=== PATIENT | female | born 1940 | race Caucasian/White ===

== ENCOUNTER → 2023-06-11 15:07 | Outpatient (REF) | payer MEDICARE, OTHER, SELFPAY | LOC: HWRAD 15:07 | PROVIDERS: ATTENDING PHYSICIAN Internal Medicine; FAMILY PHYSICIAN Family Medicine | DX: M81.0 Age-related osteoporosis without current pathological fracture (principal) | CPT/HCPCS: 77080 ==

== ENCOUNTER → 2023-06-23 09:56 | Outpatient (REF) | payer MEDICARE, OTHER, SELFPAY ==
[2023-06-23 12:44] LABS: ALT (SGPT) 22 U/L (0-35); AST (SGOT) 28 U/L (14-36); Albumin 4.4 g/dl (3.5-5.0); Alkaline Phosphatase 49 U/L (38-126); Blood Urea Nitrogen 23 mg/dl (7-17); Calcium 9.6 mg/dl (8.4-10.2); Carbon Dioxide 30 mmol/L (22-30); Chloride 100 mmol/L (98-107); Glucose 105 mg/dl (70-99); Potassium 4.5 mmol/L (3.5-5.1); Sodium 137 mmol/L (135-145); Total Bilirubin 0.8 mg/dl (0.2-1.3); Total Protein 6.7 g/dl (6.3-8.2); eGFR 50.17
[2023-06-23 12:52] LABS: Vitamin D, 25-OH*** 51.4 ng/mL (30-80)
== END ==
LOC: HWLAB 09:56
PROVIDERS: ATTENDING PHYSICIAN Internal Medicine; FAMILY PHYSICIAN Family Medicine
DX: M81.0 Age-related osteoporosis without current pathological fracture (principal); Z51.81 Encounter for therapeutic drug level monitoring
CPT/HCPCS: 36415; 80053; 82306

== ENCOUNTER → 2023-08-08 11:10 | Outpatient (REF) | payer MEDICARE, OTHER, SELFPAY | LOC: DHCBC/DCA 11:10 | PROVIDERS: ATTENDING PHYSICIAN Internal Medicine Cardiovascular Disease; FAMILY PHYSICIAN Family Medicine | DX: I47.29 Other ventricular tachycardia (principal); I44.0 Atrioventricular block, first degree; Z95.0 Presence of cardiac pacemaker; R94.31 Abnormal electrocardiogram [ECG] [EKG] | CPT/HCPCS: 78452; 93017; A9500; J2785 ==

== ENCOUNTER → 2023-08-14 10:36 | Outpatient (REF) | payer MEDICARE, OTHER, SELFPAY ==
[2023-08-14 12:52] LABS: Blood Urea Nitrogen 25 mg/dl (7-17); Calcium 9.2 mg/dl (8.4-10.2); Carbon Dioxide 30 mmol/L (22-30); Chloride 102 mmol/L (98-107); Glucose 103 mg/dl (70-99); Potassium 4.7 mmol/L (3.5-5.1); Sodium 138 mmol/L (135-145); eGFR 45.19
== END ==
LOC: HWLAB 10:36
PROVIDERS: ATTENDING PHYSICIAN Family Medicine
DX: E03.9 Hypothyroidism, unspecified (principal); N18.31 Chronic kidney disease, stage 3a; R73.01 Impaired fasting glucose
CPT/HCPCS: 36415; 80048; 83036; 84443

== ENCOUNTER → 2023-10-16 13:18 | Outpatient (REF) | payer MEDICARE, OTHER, SELFPAY | LOC: HWWDC 13:18 | PROVIDERS: ATTENDING PHYSICIAN Family Medicine | DX: Z12.31 Encounter for screening mammogram for malignant neoplasm of breast (principal) | CPT/HCPCS: 77063; 77067 ==

== ENCOUNTER 2024-01-16 11:14 | Emergency (ER) | payer MEDICARE, OTHER, SELFPAY ==
[2024-01-16 11:50] VITALS: BP 166/72
--- NOTE | 2024-01-16 14:40 | ED.GENMED ---
History of Present Illness
General
Chief Complaint: Fall
Source: patient
Exam Limitations: none
Time Seen by Provider: 01/16/24 13:11
Nursing documentation reviewed up to this point in time: agreed with
History of Present Illness
History of Present Illness:
83-year-old female presenting to the emergency department today after trip and fall 5 days ago ongoing pain to the right hip. Also bruising. Able to walk denies numbness weakness any head trauma or neck pain.
Past History
Past History
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
ED Past Surgical History: Appendectomy, Orthopedic (wrist surgery, finger surgery as a child, Laser surgery on both eyes for glaucoma) and Tonsilectomy
Social History
Tobacco: Non-smoker
Personal:
Living: with family
Employment: Retired
Review of Systems
Review of Systems
Allergies reviewed?: Yes
All Other Systems: ROS reviewed and negative except as documented in HPI and ROS
Phy Exam
Physical Exam
Physical Exam:
GENERAL: Alert , in no apparent distress
EYE: pupils equal and reactive
NECK: Supple, no significant adenopathy.
ENT: o/p clr, mmm.
CARDIAC: Regular rate and rhythm .
LUNGS: Clear breath sounds bilaterally, no acute respiratory distress, no wheezes/rales/rhonchi
ABDOMEN: Soft, without focal tenderness, no r/g, no cvat
NEUROLOGICAL: Alert and oriented, no focal neuro deficits
SKIN: Warm and dry, skin intact.
MUSCULOSKELETAL: Bruise laterally to the right hip but good range of motion and strength otherwise no edema, well perfused.
PSYCH: Normal and appropriate interaction.
Course
Orders/Labs/Results
Orders:
Orders
01/16/24 11:54
CR Hip - RT w/wo Pel 2-3 Vw* Urgent
Comment:
Reason For Exam: fall
Include a pelvis x-ray?: Yes
Vital Signs
Initial and Last Documented VS:
Initial Vital Signs
Temp Pulse Resp BP Pulse Ox
97.3 F 72 18 166/72 98
01/16/24 11:50 01/16/24 11:50 01/16/24 11:50 01/16/24 11:50 01/16/24 11:50
Last Documented Vital Signs
Temp Pulse Resp BP Pulse Ox
97.3 F 72 18 166/72 98
01/16/24 11:50 01/16/24 11:50 01/16/24 11:50 01/16/24 11:50 01/16/24 11:50
MDM/Problems Addressed
MDM/Problems Addressed:
83-year-old female presenting to the emergency department today with concerns of ongoing discomfort to the right hip after ground-level fall 5 days ago. Patient well-appearing here no distress able to range fully walk normally. Vital signs are
normal other than elevated blood pressure. X-ray without signs fracture. Patient appears stable for discharge with likely soft tissue injury.
*Critical Care Note
Total Time (30-74mins, 75-104mins- exclusive of procedures): Not Applicable
ED Attending Note
-
Portions of this chart may have been created with voice recognition software.� Occasional wrong word or��sound alike� substitutions may have occurred due to the inherent limitations of voice recognition software.
Discharge Plan
Departure
Patient Disposition: Home (Routine Discharge)
Date of Disposition: 01/16/24
Time of Disposition: 14:41
Patient with high blood pressure during this ER visit?: Yes
Condition: Good
Covid-19: Not Applicable
Discharge Problem:
Hip sprain
Instructions: Contusion (DC), Preventing falls in adults, BLOOD PRESSURE
Prescriptions:
No Action
levothyroxine 50 MCG tablet
50 mcg PO DAILY
vitamin B complex 1 EACH tablet
1 tab PO DAILY
docosahexaenoic acid-epa 1 CAP capsule
1 cap PO DAILY
calcium citrate-vitamin D3 [Calcium Citrate + D] 1 EACH tablet
1 tab PO DAILY
coenzyme Q10 [Co Q-10] 200 MG capsule
200 mg PO DAILY
cholecalciferol (vitamin D3) 1,000 UNITS tablet
1,000 units PO DAILY
multivitamin with folic acid [Tab-A-La] 1 TABLET tablet
0.5 tab PO DAILY
acetaminophen 325 MG tablet
650 mg PO Q4HPRN PRN (Reason: mild pain, TAVARES, temp >101) Qty: 0 0RF
cyanocobalamin (vitamin B-12) 1,000 MCG tablet
500 mcg PO DAILY Qty: 0 0RF
famotidine 20 mg Tablet
20 mg PO DAILY
aspirin 81 mg Tablet,Chewable
81 mg PO DAILY
rosuvastatin 10 mg Tablet
10 mg PO DAILY
brimonidine [Alphagan P] 0.1 % Drops
1 drp OPHTHALMIC (EYE) TID
Lumigan 0.01 % Drops
1 drp OPHTHALMIC (EYE) QPM
metoprolol succinate [Toprol XL] 50 mg tablet extended release 24 hr
50 mg PO DAILY Qty: 90 5RF
Activity Restrictions/Additional Instructions:
You came to the emergency department after a fall. Here you had an x-ray without signs of fracture. This is likely a soft tissue injury. Please rest and symptoms will hopefully improve over the next few days. Return to the emergency department
for any worsening, new or concerning symptoms.
Interventions
Interventions:
*Risk Screen - Suicide Last Done: 01/16/24 11:53
*General Assessment Last Done: 01/16/24 11:50
*Neglect/Abuse Screening Last Done: 01/16/24 11:50
ED-Musculoskeletal Assessment Last Done: 01/16/24 13:43
ED- Neurological Assessment Last Done: 01/16/24 13:43
ED-Skin Assessment Last Done: 01/16/24 13:43
Discharge Date and Time
Print Language: LITHUANIAN
[2024-01-16 15:26] VITALS: BP 155/90
[2024-01-16 15:27] VITALS: BP 155/90
== END 2024-01-16 15:28 | disposition home or self-care (01) ==
LOC: EMR 11:14
PROVIDERS: EMERGENCY PHYSICIAN Emergency Medicine; FAMILY PHYSICIAN Family Medicine
DX: S73.101A Unspecified sprain of right hip, initial encounter (principal); W01.0XXA Fall on same level from slipping, tripping and stumbling without subsequent striking against object, initial encounter; K21.9 Gastro-esophageal reflux disease without esophagitis; E03.9 Hypothyroidism, unspecified; M85.80 Other specified disorders of bone density and structure, unspecified site; Z90.49 Acquired absence of other specified parts of digestive tract; M41.9 Scoliosis, unspecified; N39.3 Stress incontinence (female) (male); H26.9 Unspecified cataract; H40.9 Unspecified glaucoma; G60.9 Hereditary and idiopathic neuropathy, unspecified
CPT/HCPCS: 99283; 73502

== ENCOUNTER → 2024-03-12 09:58 | Outpatient (REF) | payer MEDICARE, OTHER, SELFPAY ==
[2024-03-12 11:50] LABS: % Eosinophils 3.9 % (0-6); % Immature Granulocytes 0.3 % (0-0.5); % Lymphocytes 26.7 % (20.5-51.1); % Neutrophils 60.1 % (42.2-75.2); Absolute Basophils 0.1 10^3/uL (0-0.2); Absolute Eosinophils 0.2 10^3/uL (0-0.7); Absolute Lymphocytes 1.6 10^3/uL (1.2-3.4); Absolute Monocytes 0.5 10^3/uL (0.1-0.6); Absolute Neutrophils 3.7 10^3/uL (1.4-6.5); Hemoglobin 14.1 g/dL (12.0-16.0); Mean Corp Hgb Conc. 32.8 g/dL (33.0-37.0); Mean Corpuscular Hgb 31.8 pg (27.0-31.0); Mean Corpuscular Volume 96.8 fL (81.0-99.0); Nucleated Red Blood Cells % 0 %; Platelet Count 116 10^3/uL (130-400); Red Blood Cell Count 4.44 10^6/uL (4.20-5.40); Red Cell Dist. Width 12.6 % (11.5-14.5); White Blood Cell Count 6.2 10^3/uL (4.8-10.8)
[2024-03-12 12:22] LABS: ALT (SGPT) 26 U/L (0-35); AST (SGOT) 33 U/L (14-36); Albumin 4.4 g/dl (3.5-5.0); Alkaline Phosphatase 48 U/L (38-126); Blood Urea Nitrogen 22 mg/dl (7-17); Calcium 9.5 mg/dl (8.4-10.2); Carbon Dioxide 31 mmol/L (22-30); Chloride 101 mmol/L (98-107); Glucose 110 mg/dl (70-99); Potassium 4.5 mmol/L (3.5-5.1); Sodium 140 mmol/L (135-145); Total Bilirubin 0.6 mg/dl (0.2-1.3); Total Protein 6.7 g/dl (6.3-8.2); eGFR 44.91
[2024-03-12 12:38] LABS: Glycohemoglobin (HgbA1c) 5.9 % (4.0-5.6)
[2024-03-12 12:51] LABS: TSH 2.93 uIU/ml (0.47-4.68)
== END ==
LOC: HWLAB 09:58
PROVIDERS: ATTENDING PHYSICIAN Family Medicine; REFERRING PHYSICIAN Internal Medicine Cardiovascular Disease
DX: R73.01 Impaired fasting glucose (principal); E03.9 Hypothyroidism, unspecified; K21.00 Gastro-esophageal reflux disease with esophagitis, without bleeding; E78.00 Pure hypercholesterolemia, unspecified
CPT/HCPCS: 36415; 80053; 83036; 84443; 85025

== ENCOUNTER → 2024-07-02 09:33 | Outpatient (REF) | payer MEDICARE, OTHER, SELFPAY ==
[2024-07-02 12:37] LABS: % Basophils 0.7 % (0-2); % Eosinophils 3.7 % (0-6); % Immature Granulocytes 0.5 % (0-0.5); % Lymphocytes 28.9 % (20.5-51.1); % Monocytes 8.5 % (1.7-9.3); % Neutrophils 57.7 % (42.2-75.2); Absolute Eosinophils 0.2 10^3/uL (0-0.7); Absolute Lymphocytes 1.7 10^3/uL (1.2-3.4); Absolute Monocytes 0.5 10^3/uL (0.1-0.6); Absolute Neutrophils 3.4 10^3/uL (1.4-6.5); Hematocrit 43.2 % (37.0-47.0); Hemoglobin 14.3 g/dL (12.0-16.0); Mean Corp Hgb Conc. 33.1 g/dL (33.0-37.0); Mean Corpuscular Hgb 31.7 pg (27.0-31.0); Mean Corpuscular Volume 95.8 fL (81.0-99.0); Mean Platelet Volume 12.3 fL (7.4-10.4); Nucleated Red Blood Cells % 0 %; Platelet Count 118 10^3/uL (130-400); Red Blood Cell Count 4.51 10^6/uL (4.20-5.40); Red Cell Dist. Width 12.7 % (11.5-14.5); White Blood Cell Count 5.9 10^3/uL (4.8-10.8)
[2024-07-02 12:56] LABS: ALT (SGPT) 26 U/L (0-35); AST (SGOT) 31 U/L (14-36); Albumin 4.4 g/dl (3.5-5.0); Alkaline Phosphatase 55 U/L (38-126); Blood Urea Nitrogen 31 mg/dl (7-17); Calcium 9.9 mg/dl (8.4-10.2); Carbon Dioxide 29 mmol/L (22-30); Chloride 104 mmol/L (98-107); Glucose 107 mg/dl (70-99); Potassium 4.7 mmol/L (3.5-5.1); Sodium 142 mmol/L (135-145); Total Bilirubin 0.8 mg/dl (0.2-1.3); Total Protein 6.6 g/dl (6.3-8.2)
[2024-07-02 13:05] LABS: Vitamin D, 25-OH*** 53.4 ng/mL (30-80)
== END ==
LOC: HWLAB 09:33
PROVIDERS: ATTENDING PHYSICIAN Internal Medicine; FAMILY PHYSICIAN Nurse Practitioner Adult Health
DX: E21.3 Hyperparathyroidism, unspecified (principal); M81.0 Age-related osteoporosis without current pathological fracture; R73.01 Impaired fasting glucose; N18.31 Chronic kidney disease, stage 3a
CPT/HCPCS: 36415; 80053; 82306; 83970; 85025

== ENCOUNTER → 2024-10-15 12:55 | Outpatient (REF) | payer MEDICARE, OTHER, SELFPAY | LOC: HWRCS 12:55 | PROVIDERS: ATTENDING PHYSICIAN Internal Medicine Cardiovascular Disease; FAMILY PHYSICIAN Family Medicine | DX: I25.10 Atherosclerotic heart disease of native coronary artery without angina pectoris (principal); R06.02 Shortness of breath | CPT/HCPCS: 93306 ==

== ENCOUNTER → 2024-10-18 13:18 | Outpatient (REF) | payer MEDICARE, OTHER, SELFPAY | LOC: HWWDC 13:18 | PROVIDERS: ATTENDING PHYSICIAN Family Medicine | DX: Z12.31 Encounter for screening mammogram for malignant neoplasm of breast (principal) | CPT/HCPCS: 77063; 77067 ==

== ENCOUNTER → 2024-11-08 10:10 | Outpatient (REF) | payer MEDICARE, OTHER, SELFPAY ==
[2024-11-08 13:06] LABS: Blood Urea Nitrogen 24 mg/dl (7-17); Calcium 8.7 mg/dl (8.4-10.2); Carbon Dioxide 30 mmol/L (22-30); Chloride 105 mmol/L (98-107); Glucose 106 mg/dl (70-99); Potassium 4.7 mmol/L (3.5-5.1); Sodium 139 mmol/L (135-145); eGFR 44.64
[2024-11-08 13:33] LABS: TSH 1.57 uIU/ml (0.47-4.68)
[2024-11-08 13:57] LABS: Hematocrit 40.7 % (37.0-47.0); Hemoglobin 13.5 g/dL (12.0-16.0); Mean Corp Hgb Conc. 33.2 g/dL (33.0-37.0); Mean Corpuscular Volume 94.2 fL (81.0-99.0); Nucleated Red Blood Cells % 0 %; Platelet Count 112 10^3/uL (130-400); Red Cell Dist. Width 12.2 % (11.5-14.5)
== END ==
LOC: HWLAB 10:10
PROVIDERS: ATTENDING PHYSICIAN Family Medicine
DX: N18.31 Chronic kidney disease, stage 3a (principal); K21.00 Gastro-esophageal reflux disease with esophagitis, without bleeding; D69.6 Thrombocytopenia, unspecified; E03.9 Hypothyroidism, unspecified
CPT/HCPCS: 36415; 80048; 84443; 85025